=== PATIENT | male | born 1930 | race Caucasian/White ===

== ENCOUNTER 2022-10-21 06:24 | Observation (INO) ==
[2022-10-21] MEDS ORDERED: Lactated Ringers 1000 ml BAG 1,000 ML IV ONE (07:12)
[2022-10-21 08:22] LABS: Hematocrit 43.1 % (38-53); Hemoglobin 14.7 g/dL (13.2-16.3); Mean Corpuscular Hemoglobin 28.6 pg (27-33); Mean Corpuscular Hgb Conc 34.1 g/dL (31-36); Mean Corpuscular Volume 84.1 fL (80-97); Mean Platelet Volume 7.4 fL (7.5-11.2); Platelet Count 249 10^3/uL (150-450); Red Blood Count 5.13 10^6/uL (4.06-5.63); Red Cell Distribution Width 15.2 % (12-17); White Blood Count 13.3 10^3/uL (3.6-10.2)
[2022-10-21 08:56] LABS: AST 8 U/L (13-39); Albumin 3.8 g/dL (3.2-5.2); Albumin/Globulin Ratio 1.4 (1-3); Alkaline Phosphatase 77 U/L (35-149); Anion Gap 7 mmol/L (2-16); Blood Urea Nitrogen 31 mg/dL (6-24); C Reactive Protein 38.04 mg/L (<8.01); CO2 Carbon Dioxide 31 mmol/L (22-32); Calcium 9.2 mg/dL (8.6-10.3); Chloride 102 mmol/L (101-111); Creatinine, Serum 0.91 mg/dL (0.67-1.17); Globulin 2.8 g/dL (2-4); Glucose 107 mg/dL (70-100); Lipase < 10 U/L (11.0-82.0); Magnesium 2.1 mg/dL (1.9-2.7); Potassium 4.1 mmol/L (3.5-5.0); Sodium 140 mmol/L (135-145); Total Protein 6.6 g/dL (6.4-8.9); eGFR CKD-EPI 80.6 (>60)
[2022-10-21 09:05] LABS: ABS Basophils 0.1 10^3/uL (0.0-0.1); ABS Lymphocytes 0.9 10^3/uL (1.0-4.8); ABS Monocytes 1.7 10^3/uL (0.0-1.1); ABS Neutrophils 10.6 10^3/uL (1.5-7.6); ABS Nucleated RBC 0.01 10^3/ul; Eosinophil % 0.1 %; Lymphocyte % 7.1 %
[2022-10-21] MEDS ORDERED: Iohexol 350 (CONTRAST) 500 ML MDV IV ONE (09:29)
[2022-10-21 09:36] LABS: ALT < 3 U/L (7-52)
[2022-10-21 11:42] LABS: Urine Appearance Cloudy; Urine Bilirubin Negative (Negative); Urine Blood 1+ (Negative); Urine Color Amber; Urine Glucose Negative (Negative); Urine Ketones 1+ (Negative); Urine Nitrite Positive (Negative); Urine Protein Negative (Negative); Urine Specific Gravity 1.025 (1.002-1.030); Urine Urobilinogen Negative (Negative)
[2022-10-21 11:45] LABS: Urine Bacteria 1+ (Absent); Urine Red Blood Cell 2+(6-10/hpf) (Absent); Urine Squamous Epithelial Cell Present (Absent); Urine White Blood Cell 3+(>20/hpf) (Absent)
[2022-10-21] MEDS ORDERED: Sodium Phosphate ADULT ENEMA 133 ML BTL PR ONE (13:07)
[2022-10-21] MEDS ORDERED: cefTRIAXone 1 gm/50 mL D5W 1 GM/50 ML BAG IV SCH (18:45)
[2022-10-21] MEDS ORDERED: Senna TAB 8.6 mg TAB PO PRN (19:14)
[2022-10-21] MEDS ORDERED: Enoxaparin 30 MG/0.3 ML SYR SUBCUT SCH (20:00)
[2022-10-21] MEDS ORDERED: CARBIDOPA LEVODOPA ENTACAPONE PO SCH (21:00)
[2022-10-21] MEDS: Budesonide NEB 0.5 MG/2 ML NEB.SOLN INH SCH (21:23)
[2022-10-21] MEDS: Polyethylene Glycol 3350 17 GM PACKET PO SCH (21:37)
[2022-10-21] MEDS: ENTACAPONE 200 MG PO SCH (21:47)
[2022-10-21] MEDS: Carbidopa/Levodop 25/100 MG TAB PO SCH (21:47)
[2022-10-21] MEDS: ARFORMOTEROL 15 MCG/2 ML INH SCH (21:51)
[2022-10-22 06:01] LABS: ABS Basophils 0.2 10^3/uL (0.0-0.1); ABS Eosinophils 0.1 10^3/uL (0.0-0.5); ABS Lymphocytes 1.2 10^3/uL (1.0-4.8); ABS Monocytes 1.4 10^3/uL (0.0-1.1); ABS Neutrophils 8.4 10^3/uL (1.5-7.6); ABS Nucleated RBC 0.01 10^3/ul; Eosinophil % 1.3 %; Hematocrit 41.9 % (38-53); Hemoglobin 14.1 g/dL (13.2-16.3); Mean Corpuscular Hgb Conc 33.6 g/dL (31-36); Mean Corpuscular Volume 83.3 fL (80-97); Mean Platelet Volume 7.3 fL (7.5-11.2); Nucleated Red Blood Cells % 0.1 /100 WBC (0.0-0.4); Platelet Count 258 10^3/uL (150-450); Red Blood Count 5.03 10^6/uL (4.06-5.63); Red Cell Distribution Width 15.4 % (12-17); White Blood Count 11.3 10^3/uL (3.6-10.2)
[2022-10-22 06:22] LABS: AST 10 U/L (13-39); Albumin 3.8 g/dL (3.2-5.2); Albumin/Globulin Ratio 1.5 (1-3); Alkaline Phosphatase 72 U/L (35-149); Anion Gap 6 mmol/L (2-16); Blood Urea Nitrogen 20 mg/dL (6-24); CO2 Carbon Dioxide 26 mmol/L (22-32); Calcium 8.8 mg/dL (8.6-10.3); Chloride 106 mmol/L (101-111); Creatinine, Serum 0.73 mg/dL (0.67-1.17); Globulin 2.5 g/dL (2-4); Glucose 87 mg/dL (70-100); Potassium 3.7 mmol/L (3.5-5.0); Sodium 138 mmol/L (135-145); Total Protein 6.3 g/dL (6.4-8.9)
[2022-10-22 06:29] LABS: ALT < 3 U/L (7-52)
[2022-10-22] MEDS: Budesonide NEB 0.5 MG/2 ML NEB.SOLN INH SCH ×2 (07:45→19:21)
[2022-10-22] MEDS: ARFORMOTEROL 15 MCG/2 ML INH SCH (08:20)
[2022-10-22] MEDS: Polyethylene Glycol 3350 17 GM PACKET PO SCH ×2 (08:44→22:13)
[2022-10-22] MEDS: Carbidopa/Levodop 25/100 MG TAB PO SCH ×4 (08:44→22:15)
[2022-10-22] MEDS: ENTACAPONE 200 MG PO SCH ×4 (08:44→22:16)
[2022-10-22] MEDS: Formoterol 20 MCG/2ML NEB (NF) 10 MCG/ML NEB.SOLN INH SCH ×2 (11:54→19:22)
[2022-10-22] MEDS ORDERED: Ondansetron ODT 4 mg TAB 4 MG TAB SL PRN (17:32)
[2022-10-23] MEDS: Budesonide NEB 0.5 MG/2 ML NEB.SOLN INH SCH ×2 (08:04→19:13)
[2022-10-23] MEDS: Formoterol 20 MCG/2ML NEB (NF) 10 MCG/ML NEB.SOLN INH SCH ×2 (08:04→19:13)
[2022-10-23] MEDS: ENTACAPONE 200 MG PO SCH ×4 (09:04→21:51)
[2022-10-23] MEDS: Carbidopa/Levodop 25/100 MG TAB PO SCH ×4 (09:04→21:51)
[2022-10-23] MEDS: Polyethylene Glycol 3350 17 GM PACKET PO SCH ×2 (09:05→21:52)
[2022-10-24 04:06] VITALS: BP 132/92
[2022-10-24] MEDS ORDERED: Morphine ORAL CONCENTRATE 5 MG/0.25 ML ORAL.SYRIN SL PRN (04:10)
[2022-10-24] MEDS: Formoterol 20 MCG/2ML NEB (NF) 10 MCG/ML NEB.SOLN INH SCH (07:44)
[2022-10-24] MEDS: Budesonide NEB 0.5 MG/2 ML NEB.SOLN INH SCH (07:44)
== END 2022-10-24 07:35 ==
LOC: ED 06:24 → EDHOLD 16:10 → INTOOBSV 16:10 → SUATTDRO 16:10 → MED 18:21
PROVIDERS: ADMIT Family Medicine; ATTEND Internal Medicine